=== PATIENT | male | born 1945 | race Caucasian/White ===

== ENCOUNTER 2018-09-12 17:54 | Inpatient (IN) | payer OTHER ==
[~2018-09-12] VITALS: Ht 185.4 cm; Wt 85.3 kg
[~2018-09-12 17:54] MED LIST: ALBU6.7H INH; ASPI-496 PO; ATOR20TA PO; DEPRESSION MED PO; ETOD400T PO; FLUO20CA8 PO; LACT237L30 PO; LIPA1CAP48 PO; LIPA1CAP54 PO; LIPA1CAP61 PO; METH500T7 PO; METO25TA35 PO; METO50TA82 PO; PANT40TA5 PO; SUCR1TAB PO; TRAM50TA2 PO; TRAZ50TA66 PO; TRAZODONE PO; VITA1CAP PO; [UNRECOGNIZED DRUG - OTHER]
[2018-09-12 18:52] LABS: ANION GAP 6 mmol/L (5-15); CALCIUM 8.7 mg/dL (8.5-10.1); CHLORIDE 102 mmol/L (98-107)
[2018-09-12 18:55] LABS: ALANINE AMINOTRANSFERASE 85 U/L (12-78); ALKALINE PHOSPHATASE 700 U/L (45-117); CREATININE 0.94 mg/dL (0.7-1.3)
--- NOTE | 2018-09-12 18:55 | NUR ---
AWAITING LAB RESULTS AND MD CONSULT
[2018-09-12 18:59] LABS: BILIRUBIN,TOTAL 16.4 mg/dL (0.2-1.0)
[2018-09-12 19:22] LABS: MEAN CORPUSCULAR HEMOGLOBIN 34.9 pg (27.5-34.5); MEAN CORPUSCULAR HGB CONC 34.7 g/dL (33.2-36.2); MEAN CORPUSCULAR VOLUME 100.6 fL (81-97); MEAN PLATELET VOLUME 8.8 fL (7.4-10.4); PLATELET COUNT 403 x10^3/uL (130-400); RED CELL DISTRIBUTION WIDTH 15.6 % (9.4-14.8)
[2018-09-12 19:23] LABS: MD YES
[2018-09-12 19:27] LABS: ANISOCYTOSIS 1+; BAND#(MANUAL) 0.09 x10^3/uL; BANDS%(MANUAL) 1 % (0-7); BASOS#(MANUAL) 0.17 x10^3/uL (0-0.1); BASOS% (MANUAL) 2 % (0-1); EOS#(MANUAL) 0.26 x10^3/uL (0.0-0.4); EOS% (MANUAL) 3 % (1-7); LYMPH#(MANUAL) 2.24 x10^3/uL (1-3.4); LYMPHS% (MANUAL) 26 % (22-44); METAMYELOCYTES# (MANUAL) 0.09 x10^3/uL (0-0); METAMYELOCYTES% (MANUAL) 1 % (0-1); MONOS#(MANUAL) 0.26 x10^3/uL (0.3-2.7); MONOS% (MANUAL) 3 % (2-9); NRBC % (MANUAL) 2 % (0-1); SEGS% (MANUAL) 64 % (42-75)
[2018-09-12 19:28] LABS: <PLATELET ESTIMATE> INCREASED; <PLT MORPHOLOGY> NORMAL PLT MORPH
[2018-09-12 19:29] LABS: TOXIC GRAN 1+
[2018-09-12 19:31] LABS: TARGET CELLS 2+
--- NOTE | 2018-09-12 19:59 | NUR ---
ADMITTING MD AT BEDSIDE
[2018-09-12] MEDS ORDERED: PIPERACILLIN/TAZO/PMX 3.375GM 50 ML IVPB ONE (20:00)
[2018-09-12] MEDS ORDERED: ONDANSETRON 2MG/ML, 2ML IVPush PRN (21:00)
[2018-09-12] MEDS ORDERED: MORPHINE SULFATE 4 MG/ML, 1ML IVPush PRN (21:00)
--- NOTE | 2018-09-12 21:14 | NUR ---
ATTEMPTED TO CALL REPORT TO LORI RICHARDSON, ADRIAN STATED SHE WAS IN AN ISOLATION ROOM AND WILL CALL BACK
--- NOTE | 2018-09-12 21:24 | NUR ---
REPORT TO LORI RICHARDSON
[2018-09-12] MEDS ORDERED: hydrALAzine 20 MG/ML, 1ML IVPush PRN (21:30)
[2018-09-12] MEDS: ALBUTEROL SULFATE 2.5 MG/3 ML NPPB SCH (21:30)
[2018-09-12 22:16] LABS: FOLATE LEVEL 11.6 ng/mL (3.1-17.5)
[2018-09-13] VITALS: BP 107/62
[2018-09-13 01:22] LABS: MEAN CORPUSCULAR HEMOGLOBIN 34.5 pg (27.5-34.5); MEAN CORPUSCULAR HGB CONC 34.2 g/dL (33.2-36.2); PLATELET COUNT 401 x10^3/uL (130-400); RED BLOOD COUNT 3.25 x10^6/uL (4.38-5.82); RED CELL DISTRIBUTION WIDTH 15.9 % (9.4-14.8)
[2018-09-13 01:25] LABS: ALANINE AMINOTRANSFERASE 80 U/L (12-78); ANION GAP 9 mmol/L (5-15); CALCIUM 8.6 mg/dL (8.5-10.1); CHLORIDE 104 mmol/L (98-107); CREATININE 0.92 mg/dL (0.7-1.3)
[2018-09-13 01:28] LABS: ALKALINE PHOSPHATASE 677 U/L (45-117); TOTAL PROTEIN 6.9 g/dL (6.4-8.2)
[2018-09-13] MEDS: ALBUTEROL SULFATE 2.5 MG/3 ML NPPB SCH ×6 (01:30→21:30)
[2018-09-13 01:32] LABS: MD YES
[2018-09-13 01:36] LABS: BAND#(MANUAL) 0.08 x10^3/uL; BANDS%(MANUAL) 1 % (0-7); BASOS#(MANUAL) 0.08 x10^3/uL (0-0.1); BASOS% (MANUAL) 1 % (0-1); EOS#(MANUAL) 0.92 x10^3/uL (0.0-0.4); EOS% (MANUAL) 11 % (1-7); LYMPH#(MANUAL) 1.51 x10^3/uL (1-3.4); LYMPHS% (MANUAL) 18 % (22-44); MONOS#(MANUAL) 0.25 x10^3/uL (0.3-2.7); MONOS% (MANUAL) 3 % (2-9); SEG#(MANUAL) 5.54 x10^3/uL (1.8-6.8); SEGS% (MANUAL) 66 % (42-75)
[2018-09-13 01:37] LABS: ANISOCYTOSIS 1+
[2018-09-13 01:38] LABS: <PLATELET ESTIMATE> INCREASED; LARGE PLATELETS 1+; TARGET CELLS 1+; TOXIC GRAN 1+
[2018-09-13 01:39] LABS: SMUDGE CELLS 1+
[2018-09-13] MEDS: NS + 40MEQ KCL 1,000 ML IV SCH ×2 (03:42→22:18)
[2018-09-13 07:07] VITALS: BP 109/66
[2018-09-13] MEDS: FAMOTIDINE 20 MG/2 ML IVPush SCH ×2 (08:39→22:18)
[2018-09-13] MEDS: SUCRALFATE 1 GM TABLET PO SCH ×4 (08:39→22:17)
[2018-09-13] MEDS: METOPROLOL TARTRATE 25 MG TABLET PO SCH ×2 (08:39→22:18)
[2018-09-13 15:51] VITALS: BP 150/81
[2018-09-13] MEDS ORDERED: FENTANYL PF 100 MCG/2ML ONE ×2 (16:28→16:50)
[2018-09-13] MEDS ORDERED: DEXAMETHASONE 4 MG/ML, 1ML ONE (16:28)
[2018-09-13] MEDS ORDERED: ONDANSETRON 2MG/ML, 2ML ONE (16:28)
[2018-09-13] MEDS ORDERED: PROPOFOL 10 MG/ML, 20ML ONE (16:28)
[2018-09-13] MEDS ORDERED: ROCURONIUM 10MG/ML,5ML ONE (16:28)
[2018-09-13] MEDS ORDERED: SUCCINYLCHOLINE 20 MG/ML, 10ML ONE (16:28)
[2018-09-13] MEDS ORDERED: MIDAZOLAM 1 MG/ML, 2ML ONE (16:28)
[2018-09-13] MEDS ORDERED: LIDOCAINE 2%, 6 ML JEL.PF.APP MM ONE (16:30)
[2018-09-13] MEDS ORDERED: LABETALOL 5MG/ML, 20ML IV PRN (17:30)
[2018-09-13] MEDS ORDERED: ALBUTEROL SULFATE 2.5 MG/3 ML NPPB PRN (17:30)
[2018-09-13] MEDS ORDERED: ONDANSETRON ODT 8 MG PO PRN (17:30)
[2018-09-13] MEDS ORDERED: HALOPERIDOL 5 MG/ML IV PRN (17:30)
[2018-09-13] MEDS ORDERED: hydrALAzine 20 MG/ML, 1ML IV PRN (17:30)
[2018-09-13] MEDS ORDERED: OXYcodone 5 MG/5 ML ORAL.SOL UDC PO PRN (17:30)
[2018-09-13] MEDS ORDERED: ONDANSETRON 2MG/ML, 2ML IV PRN (17:30)
[2018-09-13] MEDS ORDERED: DIAZEPAM 5 MG/ML, 2ML IVPush PRN (17:30)
[2018-09-13] MEDS ORDERED: MIDAZOLAM 1 MG/ML, 2ML IV PRN (17:30)
[2018-09-13] MEDS ORDERED: PROMETHAZINE 12.5 MG SUPP PR PRN (17:30)
[2018-09-13] MEDS ORDERED: PROMETHAZINE 25 MG/ML, 1ML IV PRN (17:30)
[2018-09-13] MEDS ORDERED: MEPERIDINE/PF 25MG/0.5ML IVPush PRN (17:30)
[2018-09-13] MEDS ORDERED: MORPHINE SULFATE 4 MG/ML, 1ML IVPush PRN (17:30)
[2018-09-13] MEDS ORDERED: FENTANYL PF 100 MCG/2ML IV PRN (17:30)
[2018-09-13] MEDS ORDERED: HYDROmorphone 2 MG/ML, 1ML IVPush PRN (17:30)
[2018-09-13] MEDS ORDERED: EPHEDRINE 50 MG/ML, 1ML IVPush PRN (17:30)
[2018-09-13] MEDS ORDERED: OMNIPAQUE 350 MG/ML, 50 ML BOTTLE ONE (17:56)
[2018-09-13 19:20] VITALS: BP 106/64
[2018-09-14 00:38] VITALS: BP 92/52
[2018-09-14] MEDS: ALBUTEROL SULFATE 2.5 MG/3 ML NPPB SCH ×3 (01:30→09:30)
[2018-09-14] MEDS: SUCRALFATE 1 GM TABLET PO SCH ×4 (05:44→21:49)
[2018-09-14 05:56] LABS: ALBUMIN 1.9 g/dL (3.4-5.0); CALCIUM 8.4 mg/dL (8.5-10.1); CHLORIDE 105 mmol/L (98-107)
[2018-09-14 06:02] LABS: ALANINE AMINOTRANSFERASE 65 U/L (12-78); ALKALINE PHOSPHATASE 595 U/L (45-117); ANION GAP 5 mmol/L (5-15); BILIRUBIN,TOTAL 12.9 mg/dL (0.2-1.0); CREATININE 1.03 mg/dL (0.7-1.3); TOTAL PROTEIN 6.7 g/dL (6.4-8.2)
[2018-09-14 08:27] VITALS: BP 108/64
[2018-09-14] MEDS: FAMOTIDINE 20 MG/2 ML IVPush SCH ×2 (08:42→21:50)
[2018-09-14] MEDS: METOPROLOL TARTRATE 25 MG TABLET PO SCH ×2 (08:42→21:50)
[2018-09-14] MEDS ORDERED: OMNIPAQUE 350 MG/ML, 100ML BOTTLE ONE (15:26)
[2018-09-14 15:30] VITALS: BP 120/67
[2018-09-14] MEDS: NS + 40MEQ KCL 1,000 ML IV SCH (16:43)
[2018-09-14 18:42] VITALS: BP 126/71
[2018-09-15] VITALS: BP 106/61
[2018-09-15] MEDS: NS + 40MEQ KCL 1,000 ML IV SCH (05:29)
[2018-09-15] MEDS: SUCRALFATE 1 GM TABLET PO SCH ×2 (05:29→11:40)
[2018-09-15 05:39] LABS: MEAN CORPUSCULAR HEMOGLOBIN 34.7 pg (27.5-34.5); MEAN CORPUSCULAR HGB CONC 34.1 g/dL (33.2-36.2); MEAN CORPUSCULAR VOLUME 101.5 fL (81-97); MEAN PLATELET VOLUME 9.2 fL (7.4-10.4); PLATELET COUNT 377 x10^3/uL (130-400); RED CELL DISTRIBUTION WIDTH 15.7 % (9.4-14.8)
[2018-09-15 05:41] LABS: ANION GAP 3 mmol/L (5-15); CHLORIDE 109 mmol/L (98-107)
[2018-09-15 05:45] LABS: ALANINE AMINOTRANSFERASE 62 U/L (12-78); ALKALINE PHOSPHATASE 533 U/L (45-117); BILIRUBIN,TOTAL 11.7 mg/dL (0.2-1.0); CREATININE 0.93 mg/dL (0.7-1.3); TOTAL PROTEIN 6.7 g/dL (6.4-8.2)
[2018-09-15 06:18] VITALS: BP 116/64
[2018-09-15 06:22] LABS: MD YES
[2018-09-15 06:24] LABS: EOS#(MANUAL) 0.53 x10^3/uL (0.0-0.4); EOS% (MANUAL) 5 % (1-7); LYMPHS% (MANUAL) 17 % (22-44); MONOS#(MANUAL) 0.21 x10^3/uL (0.3-2.7); MONOS% (MANUAL) 2 % (2-9); SEG#(MANUAL) 8.06 x10^3/uL (1.8-6.8); SEGS% (MANUAL) 76 % (42-75)
[2018-09-15 06:25] LABS: <PLATELET ESTIMATE> ADEQUATE; <PLT MORPHOLOGY> NORMAL PLT MORPH; ANISOCYTOSIS 1+; TARGET CELLS 1+
[2018-09-15] MEDS: FAMOTIDINE 20 MG/2 ML IVPush SCH (08:12)
[2018-09-15] MEDS: METOPROLOL TARTRATE 25 MG TABLET PO SCH (08:13)
[2018-09-15 12:19] VITALS: BP 113/68
== END 2018-09-15 16:00 | disposition home or self-care (01) | DRG 444 ==
LOC: ED 19:31 → EDIP 21:05 → 3NE 21:30
PROVIDERS: ADMIT Family Medicine; ATTEND Family Medicine
PROC: 0F998ZZ Drainage of Common Bile Duct, Via Natural or Artificial Opening Endoscopic (ICD-10-PCS; 2018-09-13)
PROC: BF101ZZ Fluoroscopy of Bile Ducts using Low Osmolar Contrast (ICD-10-PCS; 2018-09-13)
PROC: 0F798DZ Dilation of Common Bile Duct with Intraluminal Device, Via Natural or Artificial Opening Endoscopic (ICD-10-PCS; principal; 2018-09-13 15:00)
DX: K80.51 Calculus of bile duct without cholangitis or cholecystitis with obstruction (principal); E43 Unspecified severe protein-calorie malnutrition; R17 Unspecified jaundice; E87.1 Hypo-osmolality and hyponatremia; D53.9 Nutritional anemia, unspecified; E78.5 Hyperlipidemia, unspecified; E87.6 Hypokalemia; I10 Essential (primary) hypertension; J44.9 Chronic obstructive pulmonary disease, unspecified; K21.9 Gastro-esophageal reflux disease without esophagitis; K86.9 Disease of pancreas, unspecified; Z86.79 Personal history of other diseases of the circulatory system; Z90.49 Acquired absence of other specified parts of digestive tract; Z79.899 Other long term (current) drug therapy; Z68.24 Body mass index [BMI] 24.0-24.9, adult
CPT/HCPCS: 36415; 74328; 99291; J3490; 74170; 76700; 80053; 80074; 82607; 82746; 83690; 85025; 87040; 93005; G0378; J1100; J2250; J2405; J2704; J3010; Q9967; C1894; C2625; J0330; J3480

== ENCOUNTER 2018-12-19 10:04 | Day surgery (SDC) | payer OTHER ==
[~2018-12-19] VITALS: Ht 185.4 cm; Wt 85.8 kg
[2018-12-19 10:40] VITALS: BP 121/71
== END 2018-12-19 15:30 | disposition home or self-care (01) ==
LOC: OUT 10:04
PROVIDERS: ATTEND Internal Medicine Gastroenterology
DX: K83.09 Other cholangitis (principal); T85.590A Other mechanical complication of bile duct prosthesis, initial encounter; K21.9 Gastro-esophageal reflux disease without esophagitis; I10 Essential (primary) hypertension; J44.9 Chronic obstructive pulmonary disease, unspecified; F32.9 Major depressive disorder, single episode, unspecified; I25.10 Atherosclerotic heart disease of native coronary artery without angina pectoris; F17.200 Nicotine dependence, unspecified, uncomplicated; Z79.1 Long term (current) use of non-steroidal anti-inflammatories (NSAID); Z79.899 Other long term (current) drug therapy; Z90.49 Acquired absence of other specified parts of digestive tract; Z99.81 Dependence on supplemental oxygen; Z80.0 Family history of malignant neoplasm of digestive organs; Y83.8 Other surgical procedures as the cause of abnormal reaction of the patient, or of later complication, without mention of misadventure at the time of the procedure
CPT/HCPCS: 36415; 43242; 43264; 43276; 74328; 80053; 88104; 88112; 88172; 88173; 88307; C1769; C1894; C2625; J0330; J1100; J2405; J2704; J3010; J7120; Q9967